=== PATIENT | female | born 1990 | race Caucasian/White ===

== ENCOUNTER 2022-06-21 18:06 | Inpatient (IN) ==
[~2022-06-21 18:06] MED LIST: Dinoprostone 10 MG VAG.SUPP VAGINAL ONE
[2022-06-21 22:03] LABS: Urine Benzodiazepine Screen None Detected (None Detect); Urine Cannabinoids Screen None Detected (None Detect); Urine Opiates Screen None Detected (None Detect)
[2022-06-22] MEDS ORDERED: miSOPROStol 100 mcg TAB VAGINAL ONE (09:24)
[2022-06-22] MEDS ORDERED: miSOPROStol 100 mcg TAB ONE ×2 (15:11→20:02)
[2022-06-22] MEDS ORDERED: Dinoprostone 10 MG VAG.SUPP VAGINAL ONE (19:02)
[2022-06-22] MEDS ORDERED: Promethazine INJ(RESTRICTED) 25 MG/ML 1 ml VIAL IM PRN (20:17)
[2022-06-22] MEDS ORDERED: Morphine 10 MG/ML VIAL (1 ml) IM ONE (20:17)
[2022-06-22] MEDS: Calcium Carb (TUMS) 500 mg CHEW TAB PO PRN (23:43)
[2022-06-23] MEDS ORDERED: Oxytocin in LR 20,000 MILLI.UNIT/1,000 ML BAG IV SCH (08:30)
[2022-06-23] MEDS: Lactated Ringers 1000 ml BAG 1,000 ML IV SCH ×4 (10:25→18:15)
[2022-06-23 10:50] LABS: ABS Lymphocytes 1.3 10^3/ul (1.0-4.8); ABS Monocytes 0.9 10^3/ul (0-0.8); ABS Neutrophils 10.3 10^3/ul (1.5-7.7); Eosinophil % 0.1 %; Hematocrit 32 % (35-47); Hemoglobin 10.1 g/dL (12.0-16.0); Lymphocyte % 10.5 %; Mean Corpuscular HGB Conc 32 g/dL (31-36); Mean Corpuscular Hemoglobin 27 pg (27-31); Mean Corpuscular Volume 86 fL (80-97); Mean Platelet Volume 8.7 fL (7.4-10.4); Nucleated Red Blood Cells % 0.1; Platelet Count 252 10^3/uL (150-450); Red Blood Count 3.68 10^6 /uL (3.70-4.87); Red Cell Distribution Width 15 % (10-15); White Blood Count 12.5 10^3/uL (3.5-10.8)
[2022-06-23] MEDS ORDERED: OBEPIDURAL (200 ML) 200 ML EPIDURAL ONE (14:19)
[2022-06-23] MEDS ORDERED: Lidocaine 1.5% EPI 1:200,000 30 ML SDV ONE (14:19)
[2022-06-23] MEDS ORDERED: Sodium Citrate/Citric Acid LIQ 15 ML UDC PO PRN (15:15)
[2022-06-23] MEDS ORDERED: Phenylephrine 40 mcg/mL 10mL (400mcg) SYRINGE IV PUSH PRN ×2 (15:15)
[2022-06-23] MEDS ORDERED: Lactated Ringers 1000 ml BAG 1,000 ML IV ONE (15:15)
[2022-06-23] MEDS ORDERED: Lactated Ringers 1000 ml BAG 500 ML IV PRN ×2 (15:15)
[2022-06-23] MEDS ORDERED: OBEPIDURAL (200 ML) 200 ML EPIDURAL SCH (16:00)
[2022-06-23] MEDS ORDERED: Lactated Ringers 1000 ml BAG 1,000 ML IV SCH ×2 (16:00)
[2022-06-23 16:03] LABS: Urine Appearance Clear; Urine Bilirubin Negative (Negative); Urine Blood Negative (Negative); Urine Color Straw; Urine Glucose Negative (Negative); Urine Ketones Negative (Negative); Urine Nitrite Negative (Negative); Urine Protein Negative (Negative); Urine Specific Gravity 1.006 (1.002-1.030); Urine Urobilinogen Negative (Negative)
[2022-06-23] MEDS ORDERED: Ondansetron 4 mg VIAL 2 MG/ML 2 ml VIAL IV PRN (18:10)
[2022-06-24] MEDS ORDERED: fentaNYL 100 mcg/2 ml 50 MCG/ML VIAL ONE ×2 (03:34→07:24)
[2022-06-24] MEDS ORDERED: Bupivacaine 0.25% w/EPI 10 ML SDV ONE (03:34)
[2022-06-24] MEDS ORDERED: Bupivacaine 0.25% SDV PF 10 ML VIAL INJ ONE (07:24)
[2022-06-24] MEDS ORDERED: ceFOXitin 2 GM IVPREMIX 2 GM/50 ML BAG IVPB ONE (09:08)
[2022-06-24] MEDS ORDERED: ceFOXitin 2 GM IVPREMIX 2 GM/50 ML BAG ONE (09:08)
[2022-06-24] MEDS ORDERED: Morphine PF AMP (0.5MG/ML) 5 MG/10 ML AMP ONE (09:41)
[2022-06-24] MEDS ORDERED: Ondansetron 4 mg VIAL 2 MG/ML 2 ml VIAL ONE (09:55)
[2022-06-24] MEDS ORDERED: Dibucaine 1% OINT 28.35 GM TUBE PR PRN (10:41)
[2022-06-24] MEDS ORDERED: Witch Hazel PAD JAR TOPICAL PRN (10:41)
[2022-06-24] MEDS ORDERED: Glycerin ADULT 2.4 gm SUPP PR PRN (10:41)
[2022-06-24] MEDS ORDERED: Oxytocin in LR 20,000 MILLI.UNIT/1,000 ML BAG IV SCH (10:45)
[2022-06-24] MEDS ORDERED: Lactated Ringers 1000 ml BAG 1,000 ML IV SCH (11:00)
[2022-06-24] MEDS ORDERED: Naloxone 0.4 mg VIAL 0.4 mg/ml 1 ml VIAL IV PRN (11:18)
[2022-06-25 09:20] LABS: ABS Basophils 0.1 10^3/ul (0-0.2); ABS Eosinophils 0.1 10^3/ul (0-0.6); ABS Lymphocytes 1.7 10^3/ul (1.0-4.8); ABS Monocytes 1.1 10^3/ul (0-0.8); ABS Neutrophils 14.2 10^3/ul (1.5-7.7); Eosinophil % 0.5 %; Hematocrit 23 % (35-47); Hemoglobin 7.4 g/dL (12.0-16.0); Lymphocyte % 10.1 %; Mean Corpuscular HGB Conc 32 g/dL (31-36); Mean Corpuscular Hemoglobin 27 pg (27-31); Mean Corpuscular Volume 86 fL (80-97); Mean Platelet Volume 7.8 fL (7.4-10.4); Platelet Count 201 10^3/uL (150-450); Red Blood Count 2.72 10^6 /uL (3.70-4.87); Red Cell Distribution Width 15 % (10-15); White Blood Count 17.2 10^3/uL (3.5-10.8)
[2022-06-26] MEDS: Calcium Carb (TUMS) 500 mg CHEW TAB PO PRN (21:38)
[2022-06-27 07:59] VITALS: BP 113/80
== END 2022-06-27 13:56 | disposition home or self-care (01) | DRG 540 ==
LOC: MCHOBOUT 18:06 → MCHOB 18:34
PROVIDERS: ADMIT Midwife; ATTEND Midwife